=== PATIENT | male | born 1955 | race Caucasian/White ===

== ENCOUNTER 2017-05-06 04:40 | Emergency (ER) | payer BC ==
[~2017-05-06] VITALS: Ht 172.7 cm; Wt 118.0 kg
[2017-05-06 04:42] VITALS: BP 122/80
== END 2017-05-06 05:12 | disposition home or self-care (01) ==
LOC: ER 04:40
DX: K42.9 Umbilical hernia without obstruction or gangrene (principal)
CPT/HCPCS: 99281